=== PATIENT | female | born 1985 | race Caucasian/White ===

== ENCOUNTER 2017-11-04 05:40 | Inpatient (IN) | payer MEDICAID ==
[2017-11-04 07:21] LABS: ADD UMIC YES; UR ASCORBIC ACID NEGATIVE (NEGATIVE); UR BILIRUBIN (Dip) NEGATIVE (NEGATIVE); UR BLOOD (Dip) 2+ mg/dL (NEGATIVE); UR CLARITY SLIGHTLY CLOUDY (CLEAR); UR COLOR YELLOW (YELLOW); UR GLUCOSE (Dip) NEGATIVE (NEGATIVE); UR KETONES (Dip) NEGATIVE (NEGATIVE); UR LEUKOCYTE ESTERASE (Dip) 3+ Leu/ul (NEGATIVE); UR NITRITE (Dip) NEGATIVE (NEGATIVE); UR RBC 50 /HPF (0-5); UR SPECIFIC GRAVITY (Dip) 1.015 (1.003-1.030); UR SQUAMOUS EPITHELIAL CELL MODERATE /HPF (FEW); UR TOTAL PROTEIN (Dip) NEGATIVE (NEGATIVE); UR UROBILINOGEN (Dip) NEGATIVE (NEGATIVE); UR WBC 30 /HPF (0-5)
[2017-11-04] MEDS: LACTATED RINGER'S 1,000 ML IV ×3 (08:56→19:52)
[2017-11-04] MEDS ORDERED: MISOPROSTOL 200 MCG TAB PR (09:30)
[2017-11-04] MEDS ORDERED: OXYTOCIN 30 UNITS/LR 500 ML IV (09:30)
[2017-11-04] MEDS ORDERED: METHYLERGONOVINE 0.2 MG INJ IM (09:30)
[2017-11-04] MEDS ORDERED: LIDOCAINE 1% (MPF) 30 ML INJ INJ (09:30)
[2017-11-04] MEDS ORDERED: CARBOPROST 250 MCG INJ IM (09:30)
[2017-11-04 09:38] LABS: ADD MAN DIFF? NO
[2017-11-04 09:44] LABS: ABNORMAL IP MESSAGE 1; BASOPHILS % 0.2 % (0.0-2.0); EOSINOPHILS # 0.2 10^3/ul (0.0-0.5); HEMATOCRIT 35.2 % (37.0-47.0); HEMOGLOBIN 11.9 g/dl (12.0-16.0); LYMPHOCYTES # 2.7 10^3/ul (0.8-2.9); MEAN CORPUSCULAR HEMOGLOBIN 31.1 pg (29.0-33.0); MEAN CORPUSCULAR HGB CONC 33.8 g/dl (32.0-37.0); MEAN CORPUSCULAR VOLUME 91.9 fl (82.0-101.0); MEAN PLATELET VOLUME 13.1 fl (7.4-10.4); MONOCYTE # 0.6 10^3/ul (0.3-0.9); NEUTROPHIL # 5.5 10^3/ul (1.6-7.5); NEUTROPHILS % 60.3 % (39.0-77.0); PLATELET COUNT 122 10^3/UL (140-415); RED BLOOD COUNT 3.83 10^6/ul (4.20-5.40); RED CELL DISTRIBUTION WIDTH 13.8 % (11.5-14.5)
[2017-11-04 09:44] LABS: WHITE BLOOD COUNT 9.1 10^3/ul (4.8-10.8)
[2017-11-04 09:46] LABS: POSITIVE DIFF @See below
[2017-11-04 09:59] LABS: INR 0.86; PROTIME 11.8 Sec (11.9-14.9); PT RATIO 0.9
[2017-11-04 10:00] LABS: PARTIAL THROMBOPLASTIN TIME 24.3 Sec (25.0-35.0)
[2017-11-04 10:00] LABS: RUPTURE FETAL MEMBRANES NEGATIVE (NEGATIVE)
[2017-11-04 15:24] LABS: RAPID PLASMA REAGIN NONREACTIVE (NR)
[2017-11-04] MEDS ORDERED: MISOPROSTOL 25 MCG CAPSULE PO (22:30)
[2017-11-05] MEDS: LACTATED RINGER'S 1,000 ML IV ×4 (02:57→22:54)
[2017-11-06] MEDS: LACTATED RINGER'S 1,000 ML IV ×2 (06:05→09:26)
[2017-11-06] MEDS ORDERED: FENTAnyl 2MCG/ML-ROPIV 0.2% 100 ML (08:50)
[2017-11-06] MEDS ORDERED: NALOXONE (0.4 MG/ML) INJ IV (09:30)
[2017-11-06] MEDS ORDERED: FENTAnyl 2MCG/ML-ROPIV 0.2% 100 ML BAG EPI (09:30)
[2017-11-06 13:25] LABS: HEPATITIS B SURFACE ANTIGEN NEGATIVE (NEGATIVE)
[2017-11-06] MEDS: OXYTOCIN 30 UNITS/LR 500 ML IV ×2 (14:43→15:06)
[2017-11-06] MEDS: LACTATED RINGER'S 1,000 ML IV* (16:29)
[2017-11-06] MEDS ORDERED: ACETAMINOPHEN 325 MG TAB PO (16:30)
[2017-11-06] MEDS ORDERED: CARBOPROST 250 MCG INJ IM (16:30)
[2017-11-06] MEDS ORDERED: METHYLERGONOVINE 0.2 MG INJ IM (16:30)
[2017-11-06] MEDS ORDERED: HYDROCODONE/APAP (5/325) TAB PO (16:30)
[2017-11-06] MEDS ORDERED: DIBUCAINE 1% 30 GM OINT PR (16:30)
[2017-11-06] MEDS ORDERED: MISOPROSTOL 200 MCG TAB PR (16:30)
[2017-11-06] MEDS ORDERED: OXYTOCIN 30 UNITS/LR 500 ML IV (16:30)
[2017-11-06] MEDS: IBUPROFEN 600 MG TAB PO (17:57)
[2017-11-06] MEDS: LANOLIN 7 GM TUBE TOP (17:57)
[2017-11-06] MEDS: BENZOCAINE 20% 56 ML SPRAY TOP (17:59)
[2017-11-06] MEDS: WITCH HAZEL/GLYCERIN PAD PR (17:59)
[2017-11-06] MEDS: SENNA/DOCUSATE NA (8.6MG/50MG) TAB PO (20:58)
[2017-11-07] MEDS: LACTATED RINGER'S 1,000 ML IV* ×3 (00:29→16:29)
[2017-11-07] MEDS: IBUPROFEN 600 MG TAB PO ×4 (01:06→18:05)
[2017-11-07 07:10] LABS: ADD MAN DIFF? NO
[2017-11-07 07:17] LABS: WHITE BLOOD COUNT 10.1 10^3/ul (4.8-10.8)
[2017-11-07 07:17] LABS: ABNORMAL IP MESSAGE 1; BASOPHILS % 0.3 % (0.0-2.0); EOSINOPHILS # 0.1 10^3/ul (0.0-0.5); EOSINOPHILS % 1.3 % (0.0-7.0); HEMATOCRIT 29.5 % (37.0-47.0); HEMOGLOBIN 9.8 g/dl (12.0-16.0); LYMPHOCYTES # 3.8 10^3/ul (0.8-2.9); LYMPHOCYTES % 37.7 % (15.0-51.0); MEAN CORPUSCULAR HGB CONC 33.2 g/dl (32.0-37.0); MEAN CORPUSCULAR VOLUME 93.4 fl (82.0-101.0); MEAN PLATELET VOLUME 13.2 fl (7.4-10.4); MONOCYTE # 0.6 10^3/ul (0.3-0.9); MONOCYTES % 5.6 % (0.0-11.0); NEUTROPHIL # 5.5 10^3/ul (1.6-7.5); NEUTROPHILS % 54.4 % (39.0-77.0); PLATELET COUNT 109 10^3/UL (140-415); RED BLOOD COUNT 3.16 10^6/ul (4.20-5.40); RED CELL DISTRIBUTION WIDTH 13.8 % (11.5-14.5)
[2017-11-07 07:19] LABS: POSITIVE DIFF @See below
[2017-11-07] MEDS: SENNA/DOCUSATE NA (8.6MG/50MG) TAB PO ×2 (08:35→21:15)
[2017-11-08] MEDS: IBUPROFEN 600 MG TAB PO ×3 (00:09→12:03)
[2017-11-08] MEDS: LACTATED RINGER'S 1,000 ML IV* ×2 (08:29→09:04)
[2017-11-08] MEDS: SENNA/DOCUSATE NA (8.6MG/50MG) TAB PO (09:03)
[2017-11-08] MEDS: DIPHTH/TET/ACEL PERTUSS (ADULT) 0.5 ML VIAL IM* (09:03)
== END 2017-11-08 13:09 | disposition home or self-care (01) | DRG 775 ==
LOC: OBT 05:40 → PP1 11-06 16:30 → L-D 05:40 → OBT 09:18 → L-D 09:06
PROC: 10E0XZZ Delivery of Products of Conception, External Approach (ICD-10-PCS; principal; 2017-11-06)
PROC: 0HQ9XZZ Repair Perineum Skin, External Approach (ICD-10-PCS; 2017-11-06)
PROC: 3E033VJ Introduction of Other Hormone into Peripheral Vein, Percutaneous Approach (ICD-10-PCS; 2017-11-06)
DX: O70.0 First degree perineal laceration during delivery (principal); Z3A.37 37 weeks gestation of pregnancy; Z37.0 Single live birth
CPT/HCPCS: 36415; 62319; 76816; 76818; 81001; 84112; 85025; 85610; 85730; 86592; 86850; 86900; 86901; 87340; 99464